=== PATIENT | female | born 1945 | race Caucasian/White ===

== ENCOUNTER 2023-05-08 09:15 | Emergency (ER) | payer OTHER, SELFPAY ==
[2023-05-08 09:22] VITALS: BP 145/75; PULSE 80; RESP 16; TEMP 35.8; O2SAT 99; BMI 19.1
--- NOTE | 2023-05-08 09:41 | CRLHL7_ITS ---
For Patients: As a result of the Century Cures Act, medical imaging exams and procedure reports are released immediately into your electronic medical record. You may view this report before your referring provider. If you have questions, please contact your health care provider. INDICATION: FALL. LOC. NASAL AND ORBITAL BRUISING TECHNIQUE: CT of the head without contrast. Coronal and sagittal reformats. Bone and soft tissue algorithms. COMPARISON: No prior studies available for comparison at this institution. FINDINGS: No acute intracranial hemorrhage or extraaxial collection. No evidence of acute cortical infarction. No mass effect or midline shift. Mild generalized cerebral and cerebellar parenchymal volume loss. Mild regions of decreased attenuation within the periventricular and subcortical white matter of both cerebral hemispheres most likely reflects chronic microvascular ischemic disease and age related change in this patient. Vascular calcifications within the carotid siphons. Orbital contents are normal. No calvarial fractures. No lytic or sclerotic osseous lesions within the calvarium or skull base. Scalp and other imaged soft tissue structures are normal. Mastoid air cells are clear. Subcutaneous gas along the bilateral aspects of the nasal bones, and left superior medial orbit. Laceration along the right face/infraorbital region. Nondisplaced nasal bone and nasal septum fracture. IMPRESSION: 1. No evidence of acute intracranial abnormality. 2. Subcutaneous gas along the bilateral aspects of the nasal bones, and left superior medial orbit. Laceration along the right face/infraorbital region. Nondisplaced nasal bone and nasal septum fracture. Please note that all CT scans at this facility use dose modulation, iterative reconstruction, and/or weight-based dosing when appropriate to reduce radiation dose to as low as reasonably achievable. Dictated by Warren Rivers MD @ 05/08/2023 10:21:06 AM (Electronically Signed)
--- NOTE | 2023-05-08 09:41 | CRLHL7_ITS ---
For Patients: As a result of the Century Cures Act, medical imaging exams and procedure reports are released immediately into your electronic medical record. You may view this report before your referring provider. If you have questions, please contact your health care provider. Indication: Subcutaneous gas along the bilateral aspects of the nasal bones, and left superior medial orbit. Laceration along the right face/infraorbital region. Nondisplaced nasal bone and nasal septum fracture. Technique: Helical axial sections were obtained through the facial skeleton, mandible and adjacent structures without intravenous contrast material. Data was reformatted not only in axial but also coronal planes. Comparison: None Findings: Subcutaneous gas along the bilateral aspects of the nasal bones, and left superior medial orbit. Laceration along the right face/infraorbital region. Nondisplaced bilateral nasal bone fractures. Rightward deviation of the nasal septum. Minimally displaced posterior bony nasal septum fracture (image 72 series 2) and nondisplaced anterior bony nasal septum fracture (image 84 series 2). No evidence of septal hematoma. The orbits and their contents are normal in appearance. There is no evidence for penetrating injury to the ocular globes. The lenses are situated in their normally expected anterior locations. No radiodense or metallic foreign body is demonstrated. No significant abnormality is demonstrated in the sinonasal cavities or adjacent structures. The sinonasal cavities are clear. The ostiomeatal complexes on each side are structurally normal and widely patent. Cervical spondylosis. Ankylosis of the C3-C5 vertebral bodies. Thinning of the roof of the left superior semicircular canal concerning for dehiscence (image 106 and 107 series 4). The visualized portions of the brain are normal in appearance. Impression: 1. Subcutaneous gas along the bilateral aspects of the nasal bones, and left superior medial orbit. 2. Laceration along the right face/infraorbital region. 3. Nondisplaced bilateral nasal bone fractures. 4. Rightward deviation of the nasal septum. Minimally displaced posterior bony nasal septum fracture (image 72 series 2) and nondisplaced anterior bony nasal septum fracture. 5. Thinning of the roof of the left superior semicircular canal concerning for dehiscence. Please note that all CT scans at this facility use dose modulation, iterative reconstruction, and/or weight-based dosing when appropriate to reduce radiation dose to as low as reasonably achievable. Dictated by Warren Rivers MD @ 05/08/2023 10:30:27 AM (Electronically Signed)
--- NOTE | 2023-05-08 09:52 | ED_ITS ---
HPI - General Adult General Chief complaint: Fall/Minor Trauma Stated complaint: Fall, nose pain Time Seen by Provider: 05/08/23 09:24 Source: patient Mode of arrival: ambulatory Limitations: no limitations History of Present Illness HPI narrative: 78-year-old female coming in today after she fainted at home hitting her face on the ground. Patient states that she let out her dog in the morning came back in the house and felt very lightheaded. [place] disoriented, but did not feel as if the room was moving around her. She crouched down to get her bearings. Stood back up and walking to her bedroom. Last thing she remembers she was getting into her bed and when she woke up she was face down on the ground next to the bed. She had pain in her nose. She denies a headache. She states that she was able to get up unassisted and came here for evaluation. She denies any recent episode of syncope. She denies any chest pain shortness of breath. She denies any palpitations. She denies blurry vision or ringing in her ears. She states that she has been very stressed out lately her is in the hospital after having abdominal surgery for small bowel obstruction. She has a history of hypertension hyperlipidemia. She takes hydrochlorothiazide daily and atorvastatin every other day. She denies urinary symptoms. She did have an episode of diarrhea this morning. Related Data Home Medications Medication Instructions Recorded Confirmed atorvastatin 20 mg tablet 20 mg PO .three times a week 05/08/23 05/08/23 hydrochlorothiazide 25 mg tablet 25 mg PO DAILY 05/08/23 05/08/23 Allergies Allergy/AdvReac Type Severity Reaction Status Date / Time amoxicillin [From Augmentin] AdvReac Intermediate Verified 05/08/23 09:36 clavulanic acid AdvReac Intermediate Verified 05/08/23 09:36 [From Augmentin] Review of Systems Status of ROS: Reports: 10 or more systems reviewed and unremarkable except as noted in History and below [facility] Social History Smoking Status: Never smoker Do you use any of these nicotine containing products: None Second hand tobacco smoke exposure: No How often do you have a drink containing alcohol: never AUDIT-C Alcohol total score: 0 Non-prescribed substance use: denies use Exam Narrative: Exam Narrative: Well-nourished well-developed patient in no acute distress. Alert and oriented. Answers questions appropriately. Mood and affect are appropriate. Thoughts are goal oriented and rational. No tangential or magical thinking noted. Patient speaks in full sentences without needing to catch her breath. Speech is not slurred or pressured. HEENT: Face is symmetrical. Normocephalic. No evidence of trauma noted to the scalp. Pupils are equally round reactive to light. Extraocular muscles are intact. Conjunctivae are moist without any icterus noted. Moist mucous membranes. Posterior pharynx is normal. Neck is soft without any lymphadenopathy or thyromegaly. No masses are appreciated. Patient has ex tensive swelling across the bridge of the nose. There are no septal hematomas noted bilaterally. She has a superficial abrasion on the tip of the nose. Cardiovascular: Heart is regular rate and rhythm S1 and S2 are present without any murmurs. Lungs: Clear to auscultation bilaterally no wheezes rhonchi or rales are appreciated. Patient takes deep breaths without any discomfort. She has no pain to palpation of the chest wall. Abdomen: Soft and nontender nondistended with normal bowel sounds. No guarding or rebound. No masses or organomegaly appreciated. Extremities: Bilateral lower extremities are without edema. Normal DP and PT pulses. Skin: Well perfused without any obvious rashes. No abrasions or evidence of trauma noted. Back: Has normal appearance. She has no tenderness to palpation at the cervical, thoracic or lumbar spine. She has good range of motion at the cervical spine with flexion, extension, side way bending and rotation without discomfort. Strength is 5/5 of the upper and lower extremities. Reflexes are 2+ and symmetric at the knees. Cranial nerves 3-12 are normal. [id number] is normal. [id number]-[id number] is normal. There is no nystagmus either horizontally or vertically. Gait is normal. Const: Vital Signs, click to edit/add: Vital Signs - 24 hr 05/08/23 09:22 05/08/23 10:10 05/08/23 11:20 Temperature 96.4 F L 97 F L Pulse Rate [Pulse Oximeter] 80 61 Respiratory Rate 16 18 Blood Pressure [Ri ght Upper Arm] 145/75 H 145/56 H Pulse Oximetry 99 98 99 Oxygen Delivery Me thod Room Air Room Air Course Course Hospital Course: Head CT did not show any acute intracranial pathology. Facial CT did show fracture of the nasal bone and nasal septum. I did consult with Dr. Marquez who recommended outpatient follow-up at this time. Her lab work was unremarkable and she remained asymptomatic under our care. EKG, read by me, shows normal sinus rhythm with a pulse of 67. There were no arrhythmias noted, no signs of dehydration perceived. Vital Signs Vital signs: Initial Vital Signs Temperature 96.4 F L 05/08/23 09:22 Temperature Source Temporal Artery Scan 05/08/23 09:22 Pulse Rate 80 05/08/23 09:22 Respiratory Rate 16 05/08/23 09:22 Blood Pressure 145/75 H 05/08/23 09:22 Blood Pressure Mean 98 05/08/23 09:22 Blood Pressure Position Sitting 05/08/23 09:22 Pulse Oximetry 99 05/08/23 09:22 Oxygen Delivery Method Room Air 05/08/23 09:22 Vital Signs Temperature 96.4 F L 05/08/23 09:22 Pulse Rate 80 05/08/23 09:22 Respiratory Rate 16 05/08/23 09:22 Blood Pressure 145/75 H 05/08/23 09:22 Pulse Oximetry 99 05/08/23 09:22 Oxygen Delivery Method Room Air 05/08/23 09:22 Temperature 97 F L 05/08/23 11:20 Pulse Rate 61 05/08/23 11:20 Respiratory Rate 18 05/08/23 11:20 Blood Pressure 145/56 H 05/08/23 11:20 Pulse Oximetry 99 05/08/23 11:20 Oxygen Delivery Method Room Air 05/08/23 11:20 Medical Decision Making MDM Narrative Medical decision making narrative: 78-year-old female with an episode of syncope. Differential diagnoses include cardiac arrhythmia or seizure. At this time, the most likely diagnoses is vasovagal syncope. This did result in a nasal bone and nasal septum fracture. At this time patient will be discharged home. She will follow up with ENT in about 10 days. We discussed stress management, increase hydration, proper sleep. Patient was in agreement with everything we discussed. We also discussed reasons to return to the ER. Lab Data Lab results reviewed: Yes I reviewed the patient's lab results Labs: Lab Results 07/30/23 07/30/23 Range/Units 10:00 11:10 WBC 8.10 (4.50-11.00) K/uL RBC 4.93 (4.00-5.20) m/uL Hgb 13.9 (12.0-16.0) gm/dL Hct 42.2 (33.0-51.0) % MCV 86 (80-100) fL MCH 28 (26-34) pg MCHC 33 (32-36) gm/dL RDW Coeff of [place]way[place] 11.8 (11.5-15.5) % Plt Count 239 (140-440) K/uL Neut % (Auto) 86.3 H (42.0-72.0) % Lymph % (Auto) 8.1 L (20-44) % [place] % (Auto) 4.9 (0.0-11.0) % Eos % (Auto) 0.2 (0.0-7.0) % Baso % (Auto) 0.4 (0.0-3.0) % Neut # (Auto) 7.00 (1.7-7.0) K/uL Lymph # (Auto) 0.70 L (0.90-2.90) K/uL [place] # (Auto) 0.40 (0.00-0.90) K/UL Eos # (Auto) 0.02 (0.00-0.50) K/uL Baso # (Auto) 0.03 (0.00-0.30) K/uL Abs Immat Gran (auto) 0.01 (0.00-0.30) K/uL Imm/Tot Granulo (auto) 0.1 % Sodium 140 (135-149) mmol/L Potassium 3.5 L (3.6-5.1) mmol/L Chloride 102 (96-114) mmol/L Carbon Dioxide 31 (20-32) mmol/L BUN 20 (7-30) mg/dL Creatinine 0.8 (0.5-1.5) mg/dL Estimated Creat Clear 37.01 Estimated GFR 76 ml/min Glucose 92 (60-115) mg/dL Calcium 9.6 (8.4-10.6) mg/dL Total Bilirubin 0.5 (0.1-1.5) mg/dL Direct Bilirubin 0.0 (0.0-0.5) mg/dL AST 30 (12-35) U/L ALT 26 (4-35) U/L Alkaline Phosphatase 61 (40-150) U/L Troponin I < 0.01 L (0.01-0.04) ng/mL C-Reactive Protein < 0.5 L (0.5-1.0) mg/dL Total Protein 7.6 (6.0-8.3) g/dL Albumin 4.6 (3.3-5.0) g/dL Urine Color Yellow (Yellow) Urine Appearance Clear (Clear) Urine pH 8.5 (5.0-8.5) Ur Specific [place] 1.020 (1.000-1.030) Urine Protein Negative (Negative) Urine Glucose (UA) Negative (Negative) Urine Ketones Negative (Negative) Urine Blood Negative (Negative) Urine Nitrite Negative (Negative) Urine Bilirubin Negative (Negative) Urine Urobilinogen 0.2 (0.2-1.0) Ur Leukocyte Esterase Negative (Negative) Urine RBC 0-2 (0-2) Urine WBC 0-2 (0-5) Ur Squamous Epith Cells Few (None-Few) Amorphous Sediment Few A (None) Urine Bacteria None (None) Ethyl Alcohol < 0.01 L (0.01-0.03) % POC Troponin I 0.00 L (0.01-0.04) ng/ml Imaging Data CT scan - head: Attestation: I have reviewed the pertinent imaging results. Radiologist's impression: CT of the head without contrast. Coronal and sagittal reformats. Bone and soft tissue algorithms. COMPARISON: No prior studies available for comparison at this institution. FINDINGS: No acute intracranial hemorrhage or extraaxial collection. No evidence of acute cortical infarction. No mass effect or midline shift. Mild generalized cerebral and cerebellar parenchymal volume loss. Mild regions of decreased attenuation within the periventricular and subcortical white matter of both cerebral hemispheres most likely reflects chronic microvascular ischemic disease and age related change in this patient. Vascular calcifications within the carotid siphons. Orbital contents are normal. No calvarial fractures. No lytic or sclerotic osseous lesions within the calvarium or skull base. Scalp and other imaged soft tissue structures are normal. Mastoid air cells are clear. Subcutaneous gas along the bilateral aspects of the nasal bones, and left superior medial orbit. Laceration along the right face/infraorbital region. Nondisplaced nasal bone and nasal septum fracture. IMPRESSION: 1. No evidence of acute intracranial abnormality. 2. Subcutaneous gas along the bilateral aspects of the nasal bones, and left superior medial orbit. Laceration along the right face/infraorbital region. Nondisplaced nasal bone and nasal septum fracture. Facial Bones CT: Attestation: I have reviewed the pertinent imaging results. Radiologist's impression: Helical axial sections were obtained through the facial skeleton, mandible and adjacent structures without intravenous contrast material. Data was reformatted not only in axial but also coronal planes. Comparison: None Findings: Subcutaneous gas along the bilateral aspects of the nasal bones, and left superior medial orbit. Laceration along the right face/infraorbital region. Nondisplaced bilateral nasal bone fractures. Rightward deviation of the nasal septum. Minimally displaced posterior bony nasal septum fracture (image 72 series 2) and nondisplaced anterior bony nasal septum fracture (image 84 series 2). No evidence of septal hematoma. The orbits and their contents are normal in appearance. There is no evidence for penetrating injury to the ocular globes. The lenses are situated in their normally expected anterior locations. No radiodense or metallic foreign body is demonstrated. No significant abnormality is demonstrated in the sinonasal cavities or adjacent structures. The sinonasal cavities are clear. The ostiomeatal complexes on each side are structurally normal and widely patent. Cervical spondylosis. Ankylosis of the C3-C5 vertebral bodies. Thinning of the roof of the left superior semicircular canal concerning for dehiscence (image 106 and 107 series 4). The visualized portions of the brain are normal in appearance. Impression: 1. Subcutaneous gas along the bilateral aspects of the nasal bones, and left superior medial orbit. 2. Laceration along the right face/infraorbital region. 3. Nondisplaced bilateral nasal bone fractures. 4. Rightward deviation of the nasal septum. Minimally displaced posterior bony nasal septum fracture (image 72 series 2) and nondisplaced anterior bony nasal septum fracture. 5. Thinning of the roof of the left superior semicircular canal concerning for dehiscence. ECG Data Attestation: I personally reviewed and interpreted this ECG as follows: Discharge Plan Discharge Clinical Impression: Fracture of nasal septum, Fracture of nasal bone, Syncope Patient Disposition: Home, Self-Care Condition: Stable Additional Instructions: You will need to follow-up with ENT (hearing aid repair technician) the week of May 16. Call the clinic 1st thing on Tuesday to set up this appointment until February you need an ER follow-up visit that week. You should ice her nose today, do not apply ice directly to the skin. Ice for 20 minutes at a time few times today. Expect bruising of your face to get worse and to spread. Get plenty of rest, stay well hydrated. Okay to use Tylenol as directed for discomfort. Prescriptions: No Action atorvastatin 20 mg tablet 20 mg PO .three times a week hydrochlorothiazide 25 mg tablet 25 mg PO DAILY Follow Up/Referrals: Neeta Brar DO [Primary Care Provider] - Stand Alone Forms: [employer] Info Instructions
[2023-05-08 10:10] VITALS: O2SAT 98
[2023-05-08 10:19] LABS: Hematocrit 42.2 % (33.0-51.0); Hemoglobin* 13.9 gm/dL (12.0-16.0); Lymphocytes Percent Auto 8.1 % (20-44); Mean Corpuscular HGB Conc 33 gm/dL (32-36); Mean Corpuscular Hemoglobin 28 pg (26-34); Mean Corpuscular Volume 86 fL (80-100); Monocytes Percent Auto 4.9 % (0.0-11.0); Neutrophils Percent Auto 86.3 % (42.0-72.0); Platelet Count* 239 K/uL (140-440); RDW Coefficient of Variation % 11.8 % (11.5-15.5); Red Blood Count 4.93 m/uL (4.00-5.20)
[2023-05-08 10:20] LABS: Basophils Absolute Auto 0.03 K/uL (0.00-0.30); Basophils Percent Auto 0.4 % (0.0-3.0); Eosinophils Absolute Auto 0.02 K/uL (0.00-0.50); Eosinophils Percent Auto 0.2 % (0.0-7.0); Immature Granulocytes Abs Auto 0.01 K/uL (0.00-0.30); Immature Granulocytes Pct Auto 0.1 %; Slide Review Reflex No
[2023-05-08 10:34] LABS: Chloride* 102 mmol/L (96-114); Sodium* 140 mmol/L (135-149)
[2023-05-08 10:35] LABS: Potassium* 3.5 mmol/L (3.6-5.1)
[2023-05-08 10:36] LABS: Albumin* 4.6 g/dL (3.3-5.0)
[2023-05-08 10:37] LABS: Creatinine* 0.8 mg/dL (0.5-1.5); Est. Creatinine Clearance* 37.01; Estimated Glomerular Filt Rate 76 ml/min
[2023-05-08 10:38] LABS: Blood Urea Nitrogen* 20 mg/dL (7-30); Carbon Dioxide* 31 mmol/L (20-32); Glucose* 92 mg/dL (60-115)
[2023-05-08 10:39] LABS: Alanine Aminotransferase* 26 U/L (4-35); Alkaline Phosphatase* 61 U/L (40-150); Aspartate Amino Transferase* 30 U/L (12-35); Bilirubin Total* 0.5 mg/dL (0.1-1.5); Calcium* 9.6 mg/dL (8.4-10.6); Total Protein* 7.6 g/dL (6.0-8.3)
[2023-05-08 10:43] LABS: C Reactive Protein* < 0.5 mg/dL (0.5-1.0); Ethanol* < 0.01 % (0.01-0.03)
[2023-05-08 10:52] LABS: Troponin I* < 0.01 ng/mL (0.01-0.04)
[2023-05-08 11:20] VITALS: BP 145/56; PULSE 61; RESP 18; TEMP 36.1; O2SAT 99
[2023-05-08 11:21] LABS: Appearance Urine Clear (Clear); Bilirubin Urine Negative (Negative); Blood Urine Negative (Negative); Color Urine Yellow (Yellow); Glucose Urine Negative (Negative); Ketones Urine Negative (Negative); Leukocyte Esterase Urine Negative (Negative); Nitrite Urine Negative (Negative); Protein Urine Negative (Negative); Urobilinogen Urine 0.2 (0.2-1.0); pH Urine 8.5 (5.0-8.5)
[2023-05-08 11:46] LABS: RBC Urine 0-2 (0-2); Squamous Epithelial Cell Urine Few (None-Few); WBC Urine 0-2 (0-5)
[2023-05-08 11:47] LABS: Amorphous Sediment Urine Few
--- NOTE | 2023-05-08 12:35 | ED.NURSE ---
cleaned nose up with furnace cleaner and antibiotic ointment, put bandage on.
== END 2023-05-08 12:34 | disposition home or self-care (01) ==
PROVIDERS: Emergency Provider Family Medicine; PCP Family Medicine
DX: R55 Syncope and collapse (principal); S02.2XXA Fracture of nasal bones, initial encounter for closed fracture
CPT/HCPCS: 36415; 70450; 70486; 80048; 80076; 81001; 82077; 84443; 84484; 85025; 86140; 87086; 93005; 94761; 99284; 99285